=== PATIENT | male | born 2000 | race Caucasian/White ===

== ENCOUNTER 2024-05-22 20:07 | Observation (INO) ==
--- NOTE | 2024-05-22 20:31 | DR.ABDMALE ---
HPI Time seen Time Seen by Provider: 05/22/24 20:30 PCP Primary Care Physician: [facility] HPI comment HPI Comment: 23 y/o with persistent, intermittent n/v for the past three days with a resultant 18 lbs wt loss as below; in with mom and says he cannot keep anything down; abd pain is intermittent and he denies fever, chills, diarrhea; he cannot remember when last bm was. He admits to binge drinking on week-ends for the past four week-ends; says he drank continuously Tuesday through Tuesday night. He has had similar episodes of abd pain, n/v but it's never lasted this long and he's never been diagnosed with pancreatitis. Complaint Chief Complaint:: PT AMBULATORY IN ED WITH COMPLAINTS OF SEVERE ABD PAIN X2 DAYS, N/V AND REPORTS A WEIGHTLOSS OF 18LBS. STATES HE CANT KEEP ANYTHING DOWN AND THE ONLY THING THAT MAKES HIM FEEL BETTER IS THROWING UP. PT UNSURE OF LAST BM BUT STATES ITS BEEN OVER 3 DAYS. Self Treatment fo Chief Complaint: ZOFRAN @3PM COVID-19 Coronavirus risk:travel/contact w/high risk person: No Has patient experienced Coronavirus symptoms: No Mode of arrival Mode of Arrival: Ambulatory Timing Onset of Chief Complaint: 05/22/24 PMH PMH Past Medical History: No Past Surgical History: No Family History History of Family Medical Conditions: Yes Family Medical History: Diabetes Mellitus Social History Type of Tobacco Use: Vape Alcohol Use: Occasionally Do you use any recreational Drugs:: Yes Travel Risk Coronavirus risk:travel/contact w/high risk person: No Has patient experienced Coronavirus symptoms: No Infectious screening Have you traveled outside the country in the last 6 months?: No Isolation: Standard ROS Review of Systems Constitutional: No Symptoms Reported Eyes: No Symptoms Reported ENTM: No Symptoms Reported Respiratoy: No Symptoms Reported Cardiovascular: No Symptoms Reported Gastrointestinal/Abdominal: See HPI Genitourinary: No Symptoms Reported Neurological: No Symptoms Reported Musculoskeletal: No Symptoms Reported Integumentary: No Symptoms Reported Hematologic/Lymphatic: No Symptoms Reported Endocrine: No Symptoms Reported Psychiatric: No Symptoms Reported PE Vital Signs Vital Signs: Temp Pulse Resp BP Pulse Ox 05/23/24 00:00 94 H 99 05/23/24 00:00 132/61 05/22/24 23:45 97 H 98 05/22/24 23:31 103 H 99 05/22/24 23:30 135/74 05/22/24 23:28 93 H 99 05/22/24 23:17 143/85 05/22/24 23:17 98 H 99 05/22/24 23:17 143/85 05/22/24 23:00 88 100 05/22/24 23:00 137/73 05/22/24 22:45 92 H 97 05/22/24 22:30 87 91 L 05/22/24 22:30 118/60 05/22/24 22:15 94 H 99 05/22/24 22:00 136/84 05/22/24 22:00 91 H 100 05/22/24 21:58 95 H 100 05/22/24 21:56 18 05/22/24 20:13 98.0 F 112 H 20 139/81 96 General Limitations: No Limitations General Appearance: Alert and In No Apparent Distress Head Head Exam: Normal Inspection Eyes Eye exam: Normal Appearance ENT ENT Exam: Normal Exam Neck Neck Exam: Normal Inspection Chest Chest Inspection: Normal Inspection Respiratory Respiratory Exam: Normal Lung Sounds Bilat Cardiovascular Cardiovascular Exam: Regular Rate and Normal Rhythm Abdominal Exam Abdominal Exam: Normal Inspection, Normal Bowel Sounds and Soft; negative Guarding or Rigidity Abdominal Tenderness: Epigastrium (mild) Rectal Rectal Exam: Deferred Back Back Exam: Normal Inspection Extremeties Extremities Exam: Normal Inspection Exam: Male: Deferred Neurologic Neurological Exam: Alert and Oriented X3 Psychiatric Psychiatric Exam: Normal Affect and Other (talkative, expressive) Skin Skin Exam: Warm, Dry, Intact and Normal Color MDM Differential Diagnosis Differential Diagnosis: Gastritus/PUD, Gastroenteritis and Pancreatitis COURSE Consultation Call Returned: 00:09 (Dr Sanon accepts admission.) ROR Labs Reviewed Laboratory Results Reviewed?: Yes 05/22/24 20:47 05/22/24 20:47 Laboratory: WBC 16.1 X10^3/uL (3.6-10.0) H 05/22/24 20:47 RBC 5.68 X10^6/uL (4.7-6.0) 05/22/24 20:47 Hgb 17.4 g/dL (13.5-18.0) 05/22/24 20:47 Hct 50.5 % (42.0-54.0) 05/22/24 20:47 MCV 88.9 fL (80.0-100.0) 05/22/24 20:47 MCH 30.7 pg (27.0-34.0) 05/22/24 20:47 MCHC 34.5 g/dL (33.0-35.0) 05/22/24 20:47 RDW 12.8 % (11.6-16.5) 05/22/24:47 Plt Count 333 X10^3/uL (150.0-450.0) 05/22/24 20:47 MPV 8.7 fL (7.4-11.0) 05/22/24 20:47 Neut % (Auto) 70.4 % (42.0-75.0) 05/22/24:47 Lymph % (Auto) 13.7 % (21.0-51.0) L 05/22/24 20:47 Eddy % (Auto) 15.3 % (0.0-13.0) H 05/22/24 20:47 Eos % (Auto) 0.2 % (0.9-2.9) L 05/22/24 20:47 Baso % (Auto) 0.4 % (0.2-1.0) 05/22/24:47 Neut # (Auto) 11.3 x10^3/uL (2.2-4.8) H 05/22/24 20:47 Lymph # (Auto) 2.2 X10^3/uL (1.3-2.9) 05/22/24 20:47 Eddy # (Auto) 2.5 x10^3/uL (0.3-0.8) H 05/22/24 20:47 Eos # (Auto) 0.0 x10^3/uL (0.0-0.2) 05/22/24 20:47 Baso # (Auto) 0.1 X10^3/uL (0.0-0.1) 05/22/24 20:47 Absolute Nucleated RBC 0.1 /100WBC 05/22/24 20:47 Sodium 137 mmol/L (136-145) 05/22/24 20:47 Corrected Sodium 137 mmol/L (136-145) 05/22/24:47 Potassium 3.2 mmol/L (3.5-5.1) L 05/22/24 20:47 Chloride 94 mmol/L (98-107) L 05/22/24 20:47 Carbon Dioxide 32.5 mmol/L (21-32) H 05/22/24 20:47 BUN 26 mg/dL (7-18) H 05/22/24 20:47 Creatinine 1.57 mg/dL (0.70-1.30) H 05/22/24 20:47 Est GFR (MDRD) Af Amer > 60 (>60) 05/22/24 20:47 Est GFR (MDRD) Non-Af 58 (>60) L 05/22/24 20:47 Glucose 116 mg/dL (65-99) H 05/22/24 20:47 Calcium 10.5 mg/dL (8.5-10.1) H 05/22/24 20:47 Corrected Calcium TNP 05/22/24 20:47 Total Bilirubin 0.80 mg/dL (0.2-1.0) 05/22/24 20:47 AST 19 Units/L (15-37) 05/22/24 20:47 ALT 30 Units/L (12-78) 05/22/24 20:47 Alkaline Phosphatase 110 Units/L (46-116) 05/22/24 20:47 Total Protein 9.4 g/dL (6.4-8.2) H 05/22/24 20:47 Albumin 5.1 g/dL (3.4-5.0) H 05/22/24 20:47 Globulin 4.3 g/dL (2.5-4.5) 05/22/24 20:47 Albumin/Globulin Ratio 1.2 Ratio (1.1-2.1) 05/22/24 20:47 Lipase 109 Units/L (16-77) H 05/22/24 20:47 Specimen Type Clean catch urine 05/22/24 23:15 Urine Color Yellow (YELLOW) 05/22/24 23:15 Urine Appearance Hazy (CLEAR) 05/22/24 23:15 Urine pH 6.5 (5.0 - 8.0) 05/22/24 23:15 Ur Specific [place] 1.005 (1.000-1.030) 05/22/24 23:15 Urine Protein 2+ (NEGATIVE) 05/22/24 23:15 Urine Glucose (UA) Negative (NEGATIVE) 05/22/24 23:15 Urine Ketones 3+ (NEGATIVE) 05/22/24 23:15 Urine Blood 1+ (NEGATIVE) 05/22/24 23:15 Urine Nitrite Negative (NEGATIVE) 05/22/24 23:15 Urine Bilirubin Negative (NEGATIVE) 05/22/24 23:15 Urine Urobilinogen 1+ (NORMAL) 05/22/24 23:15 Ur Leukocyte Esterase Negative (NEGATIVE) 05/22/24 23:15 Urine RBC 0-2 /HPF (0-3) 05/22/24 23:15 Urine WBC 0-2 /HPF (0-5) 05/22/24 23:15 Ur Squamous Epith Cells Rare /HPF (NEGATIVE) 05/22/24 23:15 Amorphous Sediment 1+ /HPF (NEGATIVE) 05/22/24 23:15 Urine Bacteria Negative /HPF (NEGATIVE) 05/22/24 23:15 Urine Mucus Rare /HPF (NEGATIVE) 05/22/24 23:15 Ur Culture Indicated? No/not indicated 05/22/24 23:15 Urine Opiates Screen Positive (NEG=<300) 05/22/24 23:15 Urine Methadone Screen Negative (NEG=<300) 05/22/24 23:15 Ur Barbiturates Screen Negative (NEG=<200) 05/22/24 23:15 Ur Phencyclidine Scrn Negative (NEG=<25) 05/22/24 23:15 Ur Amphetamines Screen Negative (NEG=<1000) 05/22/24 23:15 U Benzodiazepines Scrn Negative (NEG=<200) 05/22/24 23:15 Urine Cocaine Screen Positive (NEG=<300) 05/22/24 23:15 U Marijuana (THC) Screen Positive (NEG=<50) A 05/22/24 23:15 XRAY XRAY Interpreted by: Radiologist X-ray Results: ct abd/pelvis: No acute abdominal/pelvic abnormality identified. Appendix is normal. Opioid Opioid Risk Tool Age (Dhruv box if 16-45): Yes History of Preadolescent Sexual Abuse: No Total: 1 Total Score Risk Category: Low Risk Copyright: Marbin SANCHEZ predicting aberrant behaviors Discharge Plan Diagnosis Discharge Problem: Pancreatitis, Hypokalemia Discharge Plan Patient Disposition: 09 ADMITTED INPATIENT Condition: Stable
[2024-05-22] MEDS ORDERED: NS 1,000 ML IV 1,000 ML ONE (20:44)
[2024-05-22] MEDS: ZOFRAN INJ 4 MG VIAL IVP ONE ×2 (20:53→21:55)
[2024-05-22] MEDS: NS 1,000 ML IV 1,000 ML IV ONE ×2 (20:53→21:58)
[2024-05-22 21:01] LABS: BASOPHILS # (AUTO) 0.1 X10^3/uL (0.0-0.1); BASOPHILS % (AUTO) 0.4 % (0.2-1.0); EOSINOPHILS % (AUTO) 0.2 % (0.9-2.9); HEMATOCRIT 50.5 % (42.0-54.0); HEMOGLOBIN 17.4 g/dL (13.5-18.0); LYMPHOCYTES # (AUTO) 2.2 X10^3/uL (1.3-2.9); LYMPHOCYTES % (AUTO) 13.7 % (21.0-51.0); MEAN CORPUSCULAR HEMOGLOBIN 30.7 pg (27.0-34.0); MEAN CORPUSCULAR HGB CONC 34.5 g/dL (33.0-35.0); MEAN CORPUSCULAR VOLUME 88.9 fL (80.0-100.0); MEAN PLATELET VOLUME 8.7 fL (7.4-11.0); MONOCYTES # (AUTO) 2.5 x10^3/uL (0.3-0.8); MONOCYTES % (AUTO) 15.3 % (0.0-13.0); NEUTROPHILS # (AUTO) 11.3 x10^3/uL (2.2-4.8); NEUTROPHILS % (AUTO) 70.4 % (42.0-75.0); PLATELET COUNT 333 X10^3/uL (150.0-450.0); RED BLOOD COUNT 5.68 X10^6/uL (4.7-6.0); RED CELL DISTRIBUTION WIDTH 12.8 % (11.6-16.5); WHITE BLOOD COUNT 16.1 X10^3/uL (3.6-10.0)
[2024-05-22 21:10] LABS: ALANINE AMINOTRANSFERASE 30 Units/L (12-78); ALBUMIN 5.1 g/dL (3.4-5.0); ALKALINE PHOSPHATASE 110 Units/L (46-116); ASPARTATE AMINO TRANSFERASE 19 Units/L (15-37); BLOOD UREA NITROGEN 26 mg/dL (7-18); CALCIUM 10.5 mg/dL (8.5-10.1); CARBON DIOXIDE 32.5 mmol/L (21-32); CHLORIDE 94 mmol/L (98-107); COR NA(FOR HYPERGLY) 137 mmol/L (136-145); CREATININE 1.57 mg/dL (0.70-1.30); GLUCOSE 116 mg/dL (65-99); LIPASE 109 Units/L (16-77); POTASSIUM 3.2 mmol/L (3.5-5.1); SODIUM 137 mmol/L (136-145); TOTAL PROTEIN 9.4 g/dL (6.4-8.2); eGFR NON BLACK RACES 58 (>60)
[2024-05-22] MEDS: MORPHINE SULFATE INJ 2 MG INJ IVP ONE (21:56)
--- NOTE | 2024-05-22 22:26 | CT ---
EXAM: CT ABDOMEN AND PELVIS WITH CONTRAST HISTORY: C/O SEVERE ABD PAIN X2 DAYS, N/V AND REPORTS A WEIGHTLOSS OF 18LBS. STATES HE CANT KEEP ANYTHING DOWN AND THE ONLY THING THAT MAKES HIM FEEL BETTER IS THROWING UP.; COMPARISON: None. TECHNIQUE: Axial CT images were obtained through the abdomen and pelvis after the intravenous administration of contrast. Coronal reformatted images were included. Informed written consent was obtained prior to contrast administration. All CT scans at this facility use dose modulation, iterative reconstruction, and/or weight based dosi ng when appropriate to reduce radiation dose to as low as reasonably achievable. FINDINGS: LOWER THORAX: Within normal limits. ABDOMEN: LIVER: Hepatic steatosis GALLBLADDER: Within normal limits. SPLEEN: Within normal limits. PANCREAS: Within normal limits. KIDNEYS: Within normal limits. ADRENAL GLANDS: Within normal limits. GI TRACT: Course and caliber are within normal limits. Appendix normal. LYMPH NODES: No abnormally enlarged nodes. VESSELS: Within normal limits. PERITONEUM / RETROPERITONEUM: No free gas. PELVIS: BLADDER: Within normal limits. GENITALS: Within normal limits. BONES: Within normal limits. IMPRESSION: No acute abdominal/pelvic abnormality identified. Appendix is normal. THIS IS AN ELECTRONICALLY VERIFIED FINAL REPORT 05/22/2024 10:23 PM - Electronically signed by Servando Robles MD
[2024-05-22 23:25] LABS: BILIRUBIN,URINE NEGATIVE (NEGATIVE); BLOOD/HEMOGLOBIN,URINE 1+ (NEGATIVE); GLUCOSE, URINE NEGATIVE (NEGATIVE); KETONES,URINE 3+ (NEGATIVE); LEUKOCYTE ESTERASE ,URINE NEGATIVE (NEGATIVE); NITRITES,URINE NEGATIVE (NEGATIVE); PH,URINE 6.5 (5.0 - 8.0); PROTEIN,URINE 2+ (NEGATIVE); UROBILINOGEN,URINE 1+ (NORMAL)
[2024-05-22 23:27] LABS: APPEARANCE,URINE HAZY (CLEAR); COLOR,URINE YELLOW (YELLOW)
[2024-05-22 23:45] LABS: BACTERIA,URINE NEGATIVE /HPF (NEGATIVE); RBC,URINE 0-2 /HPF (0-3); SQUAMOUS EPITHELIAL CELL,UR RARE /HPF (NEGATIVE)
[2024-05-23] MEDS ORDERED: ATIVAN INJ 2 MG VIAL IVP PRN (00:15)
[2024-05-23] MEDS ORDERED: MORPHINE SULFATE INJ 2 MG INJ IVP PRN (00:15)
[2024-05-23 00:58] VITALS: BMI 25.0
[2024-05-23] MEDS ORDERED: CONSULT PHARMACY - POTASSIUM & MAGNESIUM XX SCH ×2 (01:00→07:00)
[2024-05-23] MEDS: K-RIDER 10 MEQ/100 ML WATER 10 MEQ/100 ML BAG IV ONE (01:11)
[2024-05-23] MEDS: NS 1,000 ML IV 1,000 ML IV SCH (01:12)
[2024-05-23 05:42] LABS: BASOPHILS # (AUTO) 0.1 X10^3/uL (0.0-0.1); BASOPHILS % (AUTO) 0.9 % (0.2-1.0); EOSINOPHILS # (AUTO) 0.1 x10^3/uL (0.0-0.2); HEMATOCRIT 43.1 % (42.0-54.0); HEMOGLOBIN 14.8 g/dL (13.5-18.0); LYMPHOCYTES # (AUTO) 4.1 X10^3/uL (1.3-2.9); LYMPHOCYTES % (AUTO) 32.6 % (21.0-51.0); MEAN CORPUSCULAR HEMOGLOBIN 30.6 pg (27.0-34.0); MEAN CORPUSCULAR HGB CONC 34.4 g/dL (33.0-35.0); MEAN PLATELET VOLUME 8.7 fL (7.4-11.0); MONOCYTES # (AUTO) 1.7 x10^3/uL (0.3-0.8); MONOCYTES % (AUTO) 13.5 % (0.0-13.0); NEUTROPHILS # (AUTO) 6.5 x10^3/uL (2.2-4.8); PLATELET COUNT 255 X10^3/uL (150.0-450.0); RED BLOOD COUNT 4.84 X10^6/uL (4.7-6.0); RED CELL DISTRIBUTION WIDTH 12.7 % (11.6-16.5); WHITE BLOOD COUNT 12.5 X10^3/uL (3.6-10.0)
[2024-05-23 05:58] LABS: ALANINE AMINOTRANSFERASE 24 Units/L (12-78); ALBUMIN 3.7 g/dL (3.4-5.0); ALKALINE PHOSPHATASE 84 Units/L (46-116); ASPARTATE AMINO TRANSFERASE 17 Units/L (15-37); BLOOD UREA NITROGEN 20 mg/dL (7-18); CALCIUM 8.9 mg/dL (8.5-10.1); CARBON DIOXIDE 33.4 mmol/L (21-32); CHLORIDE 101 mmol/L (98-107); GLUCOSE 101 mg/dL (65-99); POTASSIUM 3.2 mmol/L (3.5-5.1); SODIUM 139 mmol/L (136-145); TOTAL PROTEIN 7.3 g/dL (6.4-8.2); eGFR NON BLACK RACES > 60 (>60)
[2024-05-23] MEDS: ZOFRAN INJ 4 MG VIAL ONE (07:17)
[2024-05-23] MEDS: NS 100 ML IV 100 ML ONE (07:17)
[2024-05-23] MEDS: OMNIPAQUE 350 mg/mL 100 mL BTL 100 ML ONE (07:18)
[2024-05-23 08:55] LABS: HEMOGLOBIN A1C 5.4 %
[2024-05-23] MEDS ORDERED: K-RIDER 10 MEQ/100 ML WATER 10 MEQ/100 ML BAG IV SCH (09:00)
[2024-05-23] MEDS ORDERED: K-DUR TAB 20 MEQ PO SCH (09:00)
[2024-05-23] MEDS: BENTYL CAP 10 MG PO SCH (09:07)
[2024-05-23] MEDS: NS + KCL 20 MEQ/L 1,000 ML IV SCH (09:07)
[2024-05-23] MEDS: PROTONIX INJ 40 MG VIAL IVP ONE (09:08)
[2024-05-23] MEDS ORDERED: MILK OF MAGNESIA PO PRN (10:28)
[2024-05-23] MEDS: ZOFRAN INJ 4 MG VIAL IVP PRN (12:16)
[2024-05-23] MEDS: TORADOL 30 MG VIAL IVP ONE (15:48)
[2024-05-23] MEDS: PHENERGAN TAB 25 MG PO SCH (20:31)
[2024-05-23] MEDS: COLACE CAP 100 MG PO SCH (20:31)
[2024-05-24 06:26] LABS: BASOPHILS # (AUTO) 0.1 X10^3/uL (0.0-0.1); BASOPHILS % (AUTO) 0.9 % (0.2-1.0); EOSINOPHILS # (AUTO) 0.2 x10^3/uL (0.0-0.2); EOSINOPHILS % (AUTO) 2.1 % (0.9-2.9); HEMATOCRIT 42.1 % (42.0-54.0); HEMOGLOBIN 14.3 g/dL (13.5-18.0); LYMPHOCYTES # (AUTO) 3.4 X10^3/uL (1.3-2.9); LYMPHOCYTES % (AUTO) 43.5 % (21.0-51.0); MEAN CORPUSCULAR HGB CONC 34.1 g/dL (33.0-35.0); MEAN CORPUSCULAR VOLUME 91.1 fL (80.0-100.0); MEAN PLATELET VOLUME 8.8 fL (7.4-11.0); MONOCYTES % (AUTO) 13.3 % (0.0-13.0); NEUTROPHILS # (AUTO) 3.2 x10^3/uL (2.2-4.8); NEUTROPHILS % (AUTO) 40.2 % (42.0-75.0); PLATELET COUNT 226 X10^3/uL (150.0-450.0); RED BLOOD COUNT 4.62 X10^6/uL (4.7-6.0); RED CELL DISTRIBUTION WIDTH 12.9 % (11.6-16.5); WHITE BLOOD COUNT 7.9 X10^3/uL (3.6-10.0)
[2024-05-24 06:46] LABS: ALANINE AMINOTRANSFERASE 27 Units/L (12-78); ALKALINE PHOSPHATASE 72 Units/L (46-116); ASPARTATE AMINO TRANSFERASE 14 Units/L (15-37); BLOOD UREA NITROGEN 11 mg/dL (7-18); CALCIUM 8.4 mg/dL (8.5-10.1); CARBON DIOXIDE 27.6 mmol/L (21-32); CHLORIDE 107 mmol/L (98-107); COR CA(FOR HYPOALB) 9.2 mg/dL (8.5-10.1); CREATININE 1.02 mg/dL (0.70-1.30); GLUCOSE 98 mg/dL (65-99); POTASSIUM 3.8 mmol/L (3.5-5.1); SODIUM 141 mmol/L (136-145); TOTAL PROTEIN 6.2 g/dL (6.4-8.2); eGFR NON BLACK RACES > 60 (>60)
[2024-05-24 08:40] LABS: AMYLASE 72 Units/L (25-115); LIPASE 23 Units/L (16-77)
[2024-05-24] MEDS: BENADRYL INJ 50 MG VIAL IVP ONE (10:19)
[2024-05-24] MEDS: PEPCID 20 MG VIAL IVP ONE (10:19)
[2024-05-24] MEDS ORDERED: BENADRYL INJ 50 MG VIAL IV PRN (15:55)
[2024-05-24] MEDS: BENTYL I.M. INJ 10 MG IM ONE (16:19)
[2024-05-24] MEDS: CARAFATE PO SCH (16:19)
[2024-05-24] MEDS ORDERED: PROTONIX INJ 40 MG VIAL ONE (19:21)
[2024-05-24] MEDS: PROTONIX INJ 40 MG VIAL IVP SCH (20:34)
[2024-05-25 08:43] LABS: BASOPHILS % (AUTO) 0.7 % (0.2-1.0); EOSINOPHILS # (AUTO) 0.2 x10^3/uL (0.0-0.2); EOSINOPHILS % (AUTO) 2.5 % (0.9-2.9); HEMATOCRIT 43.7 % (42.0-54.0); HEMOGLOBIN 14.7 g/dL (13.5-18.0); LYMPHOCYTES % (AUTO) 39.2 % (21.0-51.0); MEAN CORPUSCULAR HEMOGLOBIN 30.7 pg (27.0-34.0); MEAN CORPUSCULAR HGB CONC 33.7 g/dL (33.0-35.0); MEAN CORPUSCULAR VOLUME 91.2 fL (80.0-100.0); MEAN PLATELET VOLUME 8.9 fL (7.4-11.0); MONOCYTES # (AUTO) 0.8 x10^3/uL (0.3-0.8); MONOCYTES % (AUTO) 10.3 % (0.0-13.0); NEUTROPHILS # (AUTO) 3.6 x10^3/uL (2.2-4.8); NEUTROPHILS % (AUTO) 47.3 % (42.0-75.0); PLATELET COUNT 256 X10^3/uL (150.0-450.0); RED BLOOD COUNT 4.79 X10^6/uL (4.7-6.0); RED CELL DISTRIBUTION WIDTH 12.8 % (11.6-16.5); WHITE BLOOD COUNT 7.5 X10^3/uL (3.6-10.0)
[2024-05-25 08:52] LABS: ALANINE AMINOTRANSFERASE 28 Units/L (12-78); ALBUMIN 3.4 g/dL (3.4-5.0); ALKALINE PHOSPHATASE 74 Units/L (46-116); ASPARTATE AMINO TRANSFERASE 14 Units/L (15-37); BLOOD UREA NITROGEN 7 mg/dL (7-18); CALCIUM 8.7 mg/dL (8.5-10.1); CARBON DIOXIDE 25.2 mmol/L (21-32); CHLORIDE 107 mmol/L (98-107); CREATININE 1.02 mg/dL (0.70-1.30); GLUCOSE 95 mg/dL (65-99); POTASSIUM 3.8 mmol/L (3.5-5.1); SODIUM 142 mmol/L (136-145); TOTAL PROTEIN 6.6 g/dL (6.4-8.2); eGFR NON BLACK RACES > 60 (>60)
[2024-05-25] MEDS: DIPRIVAN VIAL 20 ML ONE ×2 (09:09→09:33)
[2024-05-25] MEDS: LR 1,000 ML IV 250 ML IV PRN (09:17)
[2024-05-25] MEDS: LR 1,000 ML IV 1,000 ML IV ONE (09:17)
[2024-05-25] MEDS: DIPRIVAN VIAL 240 ML IVP PRN (09:29)
--- NOTE | 2024-05-25 12:05 | US ---
EXAM:GALL BLADDERHISTORY:Abdominal pain; PANCREATITISCOMPARISON:None available.TECHNIQUE:Multiple bearden scale and color flow Doppler images of the right upper quadrant were obtained.FINDINGS:The liver is normal in echotexture and size . No focal intraparenchymal mass or intrahepatic biliary ductal dilatation can be observed. The gallbladder fails to demonstrate evidence for cholelithiasis or layering sludge . The common bile duct is unremarkable measuring 2 mm in width. No pericholecystic fluid or gallbladder wall thickening can be observed .The right kidney appears normal in size without focal parenchymal mass or nephrolithiasis. The right kidney measurers 9 9 cm in length. No hydronephrosis or perirenal fluid can be observed. The pancreas is obscured by overlying bowel gas.IMPRESSION:Unremarkable examination of the right upper quadrant.THIS IS AN ELECTRONICALLY VERIFIED FINAL REPORT05/25/2024 12:02 PM - Electronically signed by Jaylen Hanley MD
[2024-05-25 13:59] VITALS: O2SAT 100
[2024-05-25 14:00] VITALS: BP 120/86; PULSE 80; RESP 18; TEMP 98.1
== END 2024-05-25 14:15 | disposition home or self-care (01) ==
LOC: ER 20:07 → MED/SURG 20:07
PROVIDERS: ADMIT Internal Medicine; ATTEND Internal Medicine
DX: E87.6 Hypokalemia; K85.80 Other acute pancreatitis without necrosis or infection; F14.90 Cocaine use, unspecified, uncomplicated; K21.00 Gastro-esophageal reflux disease with esophagitis, without bleeding; Z68.26 Body mass index [BMI] 26.0-26.9, adult; R11.2 Nausea with vomiting, unspecified; F11.90 Opioid use, unspecified, uncomplicated; E86.0 Dehydration; R10.84 Generalized abdominal pain; F10.90 Alcohol use, unspecified, uncomplicated; R63.4 Abnormal weight loss; K29.00 Acute gastritis without bleeding; F12.90 Cannabis use, unspecified, uncomplicated; K52.89 Other specified noninfective gastroenteritis and colitis